=== PATIENT | female | born 1935 | race Caucasian/White ===

== ENCOUNTER 2016-08-19 10:03 | Emergency (ER) | payer MEDICARE ==
[2016-08-19 10:16] VITALS: BP 144/80
--- NOTE | 2016-08-19 10:48 | UC ---
Complaint Female HPI - HPI Summary HPI Summary: 81 yo female with dysuria/urgency and frequency x 1 week no back or abd pain no fever no n/v/d - History Of Current Complaint Chief Complaint: UCGU Stated Complaint: URINARY Time Seen by Provider: 08/19/16 10:33 Hx Obtained From: Patient Onset/Duration: Gradual Onset, Lasting Days Timing: Constant Severity Initially: Moderate Severity Currently: None Pain Intensity: 0 - pain with voiding Pain Scale Used: 0-10 Numeric Character: Burning Aggravating Factor(s): Urination Associated Signs And Symptoms: Positive: Negative - Allergies/Home Medications Allergies/Adverse Reactions: Allergies Allergy/AdvReac Type Severity Reaction Status Date / Time Aspirin Allergy Severe anaphylaxis Verified 08/19/16 10:16 Home Medications: Home Medications Another Gerd Med 08/19/16 [History] Blood Thinner 08/19/16 [History] PMH/Surg Hx/FS Hx/Imm Hx Previously Healthy: Yes Cardiovascular History Of: Reports: Cardiac Disorders - A-fib GI/ History Of: Reports: Gastroesophageal Reflux, Kidney Stones - 4 + yrs ago.. UTI 04/16... micro hematuria now/NO PAIN - Surgical History Surgical History: Yes Surgery Procedure, Year, and Place: kidney stone. gallbladder. bladder lift - Family History Known Family History: Positive: Hypertension, Other - AAA Negative: Diabetes - Social History Alcohol Use: None Substance Use Type: None Smoking Status (MU): Never Smoked Tobacco - Immunization History Most Recent Influenza Vaccination: [id number] Review of Systems Constitutional: Negative Skin: Negative Eyes: Negative ENT: Negative Respiratory: Negative Cardiovascular: Negative Gastrointestinal: Negative Genitourinary: Dysuria, Frequency, Urgency Motor: Negative Neurovascular: Negative Musculoskeletal: Negative Neurological: Negative Psychological: Negative All Other Systems Reviewed And Are Negative: Yes Physical Exam Triage Information Reviewed: Yes Appearance: Well-Appearing, No Pain Distress, Well-Nourished Vital Signs: Initial Vital Signs Temp 97.7 F 08/19/16 10:07 Pulse 85 08/19/16 10:07 Resp 16 08/19/16 10:07 BP 144/80 08/19/16 10:07 Pulse Ox 100 08/19/16 10:07 Vital Signs Reviewed: Yes Eyes: Positive: Conjunctiva Clear ENT: Negative: Hearing grossly normal, Nasal congestion, Nasal drainage, Trismus , Muffled/hoarse voice Neck: Positive: Supple, Nontender Respiratory: Positive: Lungs clear, Normal breath sounds, No respiratory distress, No accessory muscle use Cardiovascular: Positive: RRR, No Murmur Abdomen Description: Positive: Nontender, No Organomegaly, Guarding. Negative: Bruit, CVA Tenderness (R), CVA Tenderness (L) Neurological: Positive: Alert, Muscle Tone Normal Psychological: Positive: Normal Response To Family Skin Exam: Normal Complaint Female Dx - Differential Dx/Diagnosis Provider Diagnoses: acute cystitis Discharge - Discharge Plan Condition: Stable Disposition: HOME Prescriptions: Cephalexin CAP* [Keflex CAP*] 500 mg PO BID #14 cap Phenazopyridine TAB* [Pyridium TAB*] 100 mg PO TID #6 tab Patient Education Materials: Urinary Tract Infection in Women (ED) Referrals: Hoang Posey MD [Primary Care Provider] - If Needed Additional Instructions: recheck for new or worsening symptoms recheck in 3-4 days if not completely better
== END 2016-08-19 10:55 | disposition home or self-care (01) ==
LOC: UCCORT 10:03
DX: N30.00 Acute cystitis without hematuria (principal); R31.29 Other microscopic hematuria; I48.91 Unspecified atrial fibrillation; K21.9 Gastro-esophageal reflux disease without esophagitis; Z87.442 Personal history of urinary calculi; Z87.440 Personal history of urinary (tract) infections; Z88.6 Allergy status to analgesic agent; Z90.49 Acquired absence of other specified parts of digestive tract
CPT/HCPCS: 81003; 87077; 87086; 87186; 99212; G0463

== ENCOUNTER 2017-06-28 19:08 | Emergency (ER) | payer MEDICARE ==
--- NOTE | 2017-06-28 21:10 | UC ---
Respiratory Complaint HPI - HPI Summary HPI Summary: ONSET YESTERDAY OF COUGH, NASAL CONGESTION AND FEELING WORN OUT/WEAK. DENIES FEVER, SOB, CP, N/V/D. WAS HOSPITALIZED FOR BILATERAL PNA AND SEPSIS 03/2016 AND SO IS CONCERNED WITH THIS NEW RESPIRATORY INFECTION. STATES SHE ACTUALLY FEELS BETTER NOW THAN EARLIER IN THE DAY BUT STILL WANTED TO BE CHECKED OUT. UTD FLU SHOT. - History of Current Complaint Chief Complaint: UCGeneralIllness Stated Complaint: COUGH/CONGESTION/HEADACHE/FATIGUE Time Seen by Provider: 06/28/17 20:49 Hx Obtained From: Patient Onset/Duration: Gradual Onset, Lasting Hours, Still Present Timing: Constant Severity Initially: Moderate Severity Currently: Moderate Pain Intensity: 0 Pain Scale Used: 0-10 Numeric Character: Cough: Nonproductive Aggravating Factors: Nothing Alleviating Factors: Nothing Associated Signs And Symptoms: Positive: URI, Nasal Congestion. Negative: Dyspnea, Fever, Pleuritic Chest Pain, Wheezing - Allergies/Home Medications Allergies/Adverse Reactions: Allergies Allergy/AdvReac Type Severity Reaction Status Date / Time aspirin Allergy Severe anaphylaxis Verified 06/28/17 19:44 Home Medications: Home Medications Acetaminophen [Tylenol] 325 mg PO Q4H PRN 06/28/17 [History Confirmed 06/28/17] Apixaban* [Eliquis*] 5 mg PO BID 06/28/17 [History Confirmed 06/28/17] Metoprolol Succinate XL TAB* [Toprol XL TAB*] 25 mg PO BEDTIME 06/28/17 [ History Confirmed 06/28/17] Ranitidine TAB (NF) [Zantac TAB (NF)] 150 mg PO DAILY 06/28/17 [History Confirmed 06/28/17] PMH/Surg Hx/FS Hx/Imm Hx Cardiovascular History: Atrial Fibrillation - Surgical History Surgical History: Yes Surgery Procedure, Year, and Place: kidney stone. gallbladder. bladder lift - Family History Known Family History: Positive: Hypertension, Other - AAA Negative: Diabetes - Social History Alcohol Use: Rare Substance Use Type: None Smoking Status (MU): Never Smoked Tobacco - Immunization History Most Recent Influenza Vaccination: [id number] Review of Systems Constitutional: Fatigue ENT: Sore Throat, Nasal Discharge Respiratory: Cough Cardiovascular: Negative Gastrointestinal: Negative Neurological: Weakness All Other Systems Reviewed And Are Negative: Yes Physical Exam Triage Information Reviewed: Yes Appearance: Well-Appearing, No Pain Distress, Well-Nourished Vital Signs: Initial Vital Signs Temp 99.3 F 06/28/17 19:39 Pulse 91 06/28/17 19:39 Resp 18 06/28/17 19:39 BP 110/61 06/28/17 19:39 Pulse Ox 95 06/28/17 19:39 Eyes: Positive: Conjunctiva Clear ENT: Positive: Hearing grossly normal, Pharynx normal, TMs normal Neck: Positive: Supple, Nontender, No Lymphadenopathy Respiratory Exam: Normal Cardiovascular Exam: Normal Abdomen Description: Positive: Soft Musculoskeletal: Positive: No Edema Neurological: Positive: Alert Psychological: Positive: Age Appropriate Behavior Skin: Negative: rashes UC Diagnostic Evaluation - Laboratory O2 Sat by Pulse Oximetry: 95 Diagnostic Studies Comment: FLU NEG - Radiology Xray Interpretation: No Acute Changes - CXR Radiology Interpretation Completed By: Radiologist Respiratory Course/Dx - Course Course Of Treatment: FLU NEG. CXR UNREMARKABLE. PT STATES SHE IS FEELING BETTER NOW THAN EARLIER TODAY BUT WANTED TO GET CHECKED OUT DUE TO HER H/O PNA AND SEPSIS. OXYGEN SAT WAS HOVERING AROUND 95%. DISCUSSED INABILITY TO R/O PE AND BENEFITS OF TRANSFER TO ER FOR THIS. PT DECLINES. PT OFFERED AND DECLINED EMPIRIC ANTIBIOTICS. ADVISED TO F/U WITH PCP IN 3 DAYS. TO ER WITHOUT FAIL IF SX WORSEN. - Differential Dx/Diagnosis Provider Diagnoses: ACUTE URI Discharge - Sign-Out/Discharge Documenting (check all that apply): Discharge - Discharge Plan Condition: Stable Disposition: HOME Patient Education Materials: Upper Respiratory Infection (ED) Referrals: Hoang Posey MD [Primary Care Provider] - 3 Days Additional Instructions: FLU SWAB NEGATIVE. CHEST XRAY UNREMARKABLE TODAY. YOUR SYMPTOMS ARE LIKELY VIRALLY MEDIATED AND SHOULD RESOLVE ON THEIR OWN WITH TIME. NO INDICATION FOR ANTIBIOTICS AT PRESENT. REST, HYDRATE, OTC MEDS NEEDED. SEEK FOLLOW-UP IN 3 DAYS FOR RE-EVALUATION OF YOUR SYMPTOMS. GO TO ER WITHOUT FAIL IF YOU DEVELOP WORSENING WEAKNESS, SHORTNESS OF BREATH, CHEST PAIN, NAUSEA, SWEATS, DIZZINESS OR ANY OTHER CONCERNING SYMPTOMS. - Billing Disposition and Condition Condition: STABLE Disposition: HOME
--- NOTE | 2017-06-28 21:29 | RAD ---
INDICATION: Cough and fatigue COMPARISON: Most recent comparison chest x-rays dated October 07, 2003 TECHNIQUE: PA and lateral views of the chest were obtained. FINDINGS: The heart and mediastinum are normal in size and contour. There is coarse calcification overlying the arch of the aorta. The lungs are grossly clear. There is no evidence of large pleural effusion. Visualized bones are normal for the patient's age. There is no radiographic evidence of free air beneath the diaphragm IMPRESSION: No radiographic evidence of acute cardiopulmonary disease.
[2017-06-28 21:50] VITALS: BP 117/75
== END 2017-06-28 22:18 | disposition home or self-care (01) ==
LOC: UCCORT 19:08
DX: J06.9 Acute upper respiratory infection, unspecified (principal); Z88.6 Allergy status to analgesic agent
CPT/HCPCS: 71046; 87502; 99212; G0463

== ENCOUNTER 2017-08-12 20:47 | Emergency (ER) | payer MEDICARE ==
--- NOTE | 2017-08-12 21:04 | UC ---
Skin Complaint HPI - HPI Summary HPI Summary: 82 yo female presents with tick bite to scalp that occurred 2 days ago. She tells me that she was outside gardening and had an itch to the back of her head - scratched it and a tick came off. She says it was very small and is confident it wasn't on her more than an hour. She is here today because her daughter told her to get checked out because ticks carry diseases. Denies fever, chills. - History of Current Complaint Time Seen by Provider: 08/12/17 20:56 Stated Complaint: TICK BITE Hx Obtained From: Patient Onset/Duration: Sudden Onset Skin Exposure Onset/Duration: Days Ago - Allergy/Home Medications Allergies/Adverse Reactions: Allergies Allergy/AdvReac Type Severity Reaction Status Date / Time aspirin Allergy Severe anaphylaxis Verified 08/12/17 21:00 Review of Systems Constitutional: Negative Skin: Other - Tick bite scalp Respiratory: Negative Cardiovascular: Negative Neurovascular: Negative Neurological: Negative Psychological: Negative All Other Systems Reviewed And Are Negative: Yes PMH/Surg Hx/FS Hx/Imm Hx Previously Healthy: Yes Cardiovascular History: Hypertension, Atrial Fibrillation - Surgical History Surgical History: Yes Surgery Procedure, Year, and Place: kidney stone. gallbladder. bladder lift - Family History Known Family History: Positive: Hypertension, Other - AAA Negative: Diabetes - Social History Occupation: Retired Lives: With Family Alcohol Use: Rare Substance Use Type: None Smoking Status (MU): Never Smoked Tobacco - Immunization History Most Recent Influenza Vaccination: [id number] Physical Exam - Summary Physical Exam Summary: GENERAL: NAD. WDWN. No pain distress. SKIN: Left occipital region of scalp there is a 3mm diameter of mild erythema. NTTP. No streaking, bleeding, or drainage. NECK: Supple. Nontender. No lymphadenopathy. CHEST: No accessory muscle use. Breathing comfortably and in no distress. CV: Pulses intact and strong. NEURO: Alert. CN II-XII grossly intact. PSYCH: Age appropriate behavior. Triage Information Reviewed: Yes Course/Dx - Course Course Of Treatment: Tick bite to scalp. Pt removed it from herself within 1 hour. No treatment needed at this time. - Diagnoses Provider Diagnoses: Tick bite Discharge - Sign-Out/Discharge Documenting (check all that apply): Discharge/Admit/Transfer - Discharge Plan Condition: Stable Disposition: HOME Patient Education Materials: Lyme Disease (ED), Tick Bite (ED) Referrals: Hoang Posey MD [Primary Care Provider] - Additional Instructions: If you develop a fever, shortness of breath, chest pain, new or worsening symptoms - please call your PCP or go to the ED. Your blood pressure was high at todays visit. Please see your primary provider within 4 weeks for recheck and re-evaluation TICK BITE: You have been bitten by a tick. Once the tick is removed, these "bites" usually cause no problems. Tick fever, tick paralysis, [place] Spotted fever, and Lyme disease are uncommon -- but you should mention this tick bite to your doctor if you develop unusual symptoms in the next several weeks. If you develop any of the following, please see your physician promptly: (1) Fever, chills, or generalized malaise associated with a headache. (2) A red round area at the site of the bite (or elsewhere) (3) Joint pain, joint swelling or generalized weakness. (4) Redness, swelling, or drainage at the site of the bite. - Billing Disposition and Condition Condition: STABLE Disposition: HOME
[2017-08-12 21:07] VITALS: BP 127/75
== END 2017-08-12 21:12 | disposition home or self-care (01) ==
LOC: UCCORT 20:47
DX: S00.06XA Insect bite (nonvenomous) of scalp, initial encounter (principal); W57.XXXA Bitten or stung by nonvenomous insect and other nonvenomous arthropods, initial encounter; Y93.H2 Activity, gardening and landscaping; Y92.096 Garden or yard of other non-institutional residence as the place of occurrence of the external cause
CPT/HCPCS: 99211; G0463